=== PATIENT | male | born 1995 | race Two or more races ===

== ENCOUNTER 2016-11-06 17:40 | Emergency (ER) | payer BC ==
[~2016-11-06] VITALS: Ht 177.8 cm; Wt 81.6 kg
[~2016-11-06 17:40] MED LIST: FAMO1TAB18 PO; LANS30CA10 PO
--- NOTE | 2016-11-06 17:55 | NUR ---
PT IS IN ROOM #2B. DR HAWKINS EVALUATED THE PT.
--- NOTE | 2016-11-06 18:19 | NUR ---
Patient discharged to home in stable conditon with mother. Written and verbal after care instructions given. Patient verbalizes understanding of instructions. Stressed follow up with pmd or return to ER for worsening s/s.
== END 2016-11-06 18:20 | disposition home or self-care (01) ==
LOC: ER 17:48
DX: J40 Bronchitis, not specified as acute or chronic (principal); H66.93 Otitis media, unspecified, bilateral; G43.909 Migraine, unspecified, not intractable, without status migrainosus; F10.20 Alcohol dependence, uncomplicated; Z88.8 Allergy status to other drugs, medicaments and biological substances
CPT/HCPCS: 99283; A4663

== ENCOUNTER 2017-05-03 19:12 | Emergency (ER) | payer BC ==
[~2017-05-03] VITALS: Ht 177.8 cm; Wt 81.6 kg
[~2017-05-03 19:12] MED LIST changes: -LANS30CA10 PO; +LANS30CA54 PO
[2017-05-03] MEDS ORDERED: ONDANSETRON 4 MG/2 ML VIAL IM ONE (20:30)
[2017-05-03] MEDS ORDERED: HYDROMORPHONE 1 MG/1 ML DISP.SYRIN IM ONE (20:30)
[2017-05-03] MEDS ORDERED: ONDANSETRON 4 MG/2 ML VIAL ONE (20:40)
[2017-05-03] MEDS ORDERED: HYDROMORPHONE 2 MG/1 ML DISP.SYRIN ONE (20:40)
--- NOTE | 2017-05-03 21:16 | NUR ---
Patient discharged to home in stable conditon. Written and verbal after care instructions given. Patient verbalizes understanding of instructions.
[2017-05-03] MEDS ORDERED: ONDANSETRON ODT 4 MG TAB.RAPDIS SL ONE (21:30)
[2017-05-03] MEDS ORDERED: ONDANSETRON ODT 4 MG TAB.RAPDIS ONE (21:36)
== END 2017-05-03 21:17 | disposition home or self-care (01) ==
LOC: ER 19:13
DX: G43.909 Migraine, unspecified, not intractable, without status migrainosus (principal)
CPT/HCPCS: 36415; 70030-TC; 93005; A4663; J1170; J2405; Q0162

== ENCOUNTER 2017-08-14 20:54 | Emergency (ER) | payer BC, OTHER ==
[~2017-08-14] VITALS: Ht 177.8 cm; Wt 88.5 kg
[2017-08-14] MEDS ORDERED: HYDROMORPHONE 1 MG/1 ML DISP.SYRIN IM ONE (21:30)
[2017-08-14] MEDS ORDERED: ONDANSETRON 4 MG/2 ML VIAL IM ONE (21:30)
--- NOTE | 2017-08-14 21:35 | NUR ---
Patient discharged to home in stable conditon. Written and verbal after care instructions given. Patient verbalizes understanding of instructions. Ambulated from ER with stable gait. All belongings with patient. Patient will be driven by brother in private vehicle.
[2017-08-14] MEDS ORDERED: ONDANSETRON 4 MG/2 ML VIAL ONE (21:44)
[2017-08-14] MEDS ORDERED: HYDROMORPHONE 1 MG/1 ML DISP.SYRIN ONE (21:44)
[2017-08-14 21:55] VITALS: BP 128/78
== END 2017-08-14 21:32 | disposition home or self-care (01) ==
LOC: ER 20:55
DX: H66.92 Otitis media, unspecified, left ear (principal); J20.9 Acute bronchitis, unspecified; R10.9 Unspecified abdominal pain; G43.909 Migraine, unspecified, not intractable, without status migrainosus; Z88.8 Allergy status to other drugs, medicaments and biological substances
CPT/HCPCS: 96372 ×2; 99284; A4663; J1170; J2405

== ENCOUNTER 2018-02-07 15:38 | Emergency (ER) | payer BC, OTHER ==
[~2018-02-07] VITALS: Ht 172.7 cm; Wt 93.0 kg
--- NOTE | 2018-02-07 15:45 | NUR ---
PT. C/O ON HEADACHE AND NAUSEA,MILD ANXIETY NOTED,WAS SEEN BY WITH NEW ORDERS.
[2018-02-07] MEDS ORDERED: DEXT10TA7 PO (15:59)
[2018-02-07] MEDS ORDERED: ONDANSETRON 4 MG/2 ML VIAL IV ONE ×2 (16:00→16:30)
[2018-02-07] MEDS ORDERED: IV NORMAL SALINE 1000 ML BAG IV ONE ×2 (16:00→17:15)
[2018-02-07] MEDS ORDERED: MORPHINE SULFATE 2 MG/1 ML DISP.SYRIN IV ONE (16:00)
[2018-02-07 16:06] LABS: BASOPHILS % (AUTO) 0.7 % (0.0-2.0); EOSINOPHILS % (AUTO) 0.4 % (0.0-7.0); HEMATOCRIT 43.5 % (36.7-47.1); HEMOGLOBIN 14.5 g/dL (12.5-16.3); LYMPHOCYTES # (AUTO) 2.2 K/uL (20.0-40.0); LYMPHOCYTES % (AUTO) 33.9 % (20.5-51.5); MEAN CORPUSCULAR HEMOGLOBIN 29.1 uug (23.8-33.4); MEAN CORPUSCULAR HGB CONC 33 g/dL (32.5-36.3); MEAN CORPUSCULAR VOLUME 87.3 fL (73.0-96.2); MONOCYTES # (AUTO) 0.4 K/uL (2.0-10.0); MONOCYTES % (AUTO) 6.8 % (0.0-11.0); NEUTROPHILS # (AUTO) 3.7 K/uL (1.8-8.9); NEUTROPHILS % (AUTO) 58.2 % (38.5-71.5); PLATELET COUNT (AUTO) 231 K/uL (152-348); RED BLOOD CELL COUNT(AUTO) 4.99 MIL/uL (4.06-5.63); WHITE BLOOD COUNT (AUTO) 6.4 K/uL (3.6-10.2)
[2018-02-07] MEDS ORDERED: ONDANSETRON 4 MG/2 ML VIAL ONE ×2 (16:10→16:34)
[2018-02-07] MEDS ORDERED: MORPHINE SULFATE 2 MG/1 ML DISP.SYRIN ONE (16:10)
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
[2018-02-07 16:29] LABS: ALANINE AMINOTRANSFERASE 31 U/L (16-63); ALKALINE PHOSPHATASE 37 U/L (50-136); ASPARTATE AMINOTRANSFERASE 20 U/L (15-37); BILIRUBIN,DIRECT 0.1 mg/dL (0.0-0.2); BILIRUBIN,TOTAL 0.5 mg/dL (0.2-1.0); CARBON DIOXIDE 28 mmol/L (21-32); CHLORIDE 101 mmol/L (98-107); CREATININE 0.7 mg/dL (0.6-1.3); GLUCOSE 112 mg/dL (74-106); POTASSIUM 3.4 mmol/L (3.5-5.1); TOTAL PROTEIN, SERUM 7.7 g/dL (6.4-8.2); UREA NITROGEN, BLOOD 12 mg/dL (7-18)
--- NOTE | 2018-02-07 17:29 | NUR ---
PT. ASK TO GO AMA, REQUESTED COPY OF CT SCAN.
[2018-02-07 17:42] VITALS: BP 126/78
== END 2018-02-07 17:45 | disposition home or self-care (01) ==
LOC: ER 15:40
DX: R51 Headache (principal); R55 Syncope and collapse; Z88.8 Allergy status to other drugs, medicaments and biological substances; Z79.899 Other long term (current) drug therapy
CPT/HCPCS: 36415; 70030-TC; 70450; 71045; 85025; 85730; 93005; A4663; J2270; J2405; J7030

== ENCOUNTER 2019-05-23 00:15 | Emergency (ER) | payer BC ==
[~2019-05-23] VITALS: Ht 177.8 cm; Wt 93.4 kg
[~2019-05-23 00:15] MED LIST changes: +DEXT10TA7 PO; -FAMO1TAB18 PO; -LANS30CA54 PO
--- NOTE | 2019-05-23 00:38 | NUR ---
Patient sitting on gurny in room 2b with no distress noted.
--- NOTE | 2019-05-23 00:45 | NUR ---
Dr Crooks into eval Patient.
--- NOTE | 2019-05-23 00:56 | NUR ---
Patient discharged to home in stable conditon with brother taking patient home. Written and verbal after care instructions given. Patient verbalizes understanding of instructions. Walked out of ER with no distress noted.
== END 2019-05-23 00:57 | disposition home or self-care (01) ==
LOC: ER 00:19
DX: R00.2 Palpitations (principal); L30.9 Dermatitis, unspecified; Z88.8 Allergy status to other drugs, medicaments and biological substances; Z79.899 Other long term (current) drug therapy
CPT/HCPCS: A4663

== ENCOUNTER 2020-12-18 02:05 | Emergency (ER) | payer BC ==
[~2020-12-18] VITALS: Ht 180.3 cm; Wt 88.5 kg
--- NOTE | 2020-12-18 02:40 | NUR ---
Dr. Lind at bedside.
[2020-12-18] MEDS ORDERED: TETRACAINE HCL 0.5% OPHT DROP 2 ML BOTTLE ONE (02:43)
[2020-12-18] MEDS ORDERED: TETRACAINE HCL 0.5% OPHT DROP 2 ML BOTTLE OP ONE (02:45)
[2020-12-18] MEDS ORDERED: OXYCODONE/APAP 5-325 MG TABLET PO ONE (02:45)
[2020-12-18] MEDS ORDERED: FLUORESCEIN SODIUM 1 MG STRIP OP ONE (02:45)
[2020-12-18] MEDS ORDERED: OXYC-128 PO (02:48)
[2020-12-18] MEDS ORDERED: FLUORESCEIN SODIUM 1 MG STRIP ONE (02:48)
--- NOTE | 2020-12-18 02:54 | NUR ---
Patient discharged to home in stable condition. Written and verbal after care instructions given. Patient verbalizes understanding of instructions. Stressed follow up or return to ER for worsening s/s. Pt. walks with steady gait. Pt. verbalized understanding to not drive home.
[2020-12-18 02:55] VITALS: BP 119/72
[2020-12-18] MEDS ORDERED: OXYCODONE/APAP 5-325 MG TABLET ONE (02:57)
== END 2020-12-18 02:56 | disposition home or self-care (01) ==
LOC: ER 02:10
DX: H57.13 Ocular pain, bilateral (principal); Z86.69 Personal history of other diseases of the nervous system and sense organs
CPT/HCPCS: A4663

== ENCOUNTER 2021-09-19 16:59 | Emergency (ER) | payer BC ==
[~2021-09-19] VITALS: Ht 177.8 cm; Wt 88.5 kg
[~2021-09-19 16:59] MED LIST changes: +OXYC-128 PO
--- NOTE | 2021-09-19 17:11 | NUR ---
Patient offered cervical collar, however, patient refused.
[2021-09-19] MEDS ORDERED: CYCLOBENZAPRINE HCL 10 MG TABLET PO ONE (17:15)
[2021-09-19] MEDS ORDERED: ACETAMINOPHEN 325 MG TABLET PO ONE (17:15)
[2021-09-19] MEDS ORDERED: ACETAMINOPHEN 325 MG TABLET ONE (17:22)
[2021-09-19] MEDS ORDERED: CYCLOBENZAPRINE HCL 10 MG TABLET ONE (17:22)
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
[2021-09-19] MEDS ORDERED: CYCL5TAB PO (17:58)
[2021-09-19] MEDS ORDERED: IBUP-1955 PO (17:58)
[2021-09-19] MEDS ORDERED: KETOROLAC TROMETHAMINE 15 MG INJ IM ONE (18:00)
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
[2021-09-19] MEDS ORDERED: KETOROLAC TROMETHAMINE 15 MG INJ ONE (18:12)
--- NOTE | 2021-09-19 18:21 | NUR ---
Patient discharged to home in stable condition. Written and verbal after care instructions given. Patient verbalizes understanding of instructions. Stressed follow up or return to ER for worsening s/s.
== END 2021-09-19 18:22 | disposition home or self-care (01) ==
LOC: ER 17:02
DX: S16.1XXA Strain of muscle, fascia and tendon at neck level, initial encounter (principal); G43.909 Migraine, unspecified, not intractable, without status migrainosus; Z88.8 Allergy status to other drugs, medicaments and biological substances; Z79.899 Other long term (current) drug therapy; V49.9XXA Car occupant (driver) (passenger) injured in unspecified traffic accident, initial encounter; Y93.89 Activity, other specified; Y92.89 Other specified places as the place of occurrence of the external cause; Y99.8 Other external cause status
CPT/HCPCS: 72125; 96372; 99284; J1885; A4663